=== PATIENT | female | born 1970 | race Two or more races ===

== ENCOUNTER 2020-01-22 16:29 | Outpatient (REF) | payer OTHER, SELFPAY | END 2020-01-22 16:30 | disposition home or self-care (01) | LOC: HO.LAB 16:29 | PROVIDERS: Visit Provider Internal Medicine | DX: Z20.828 Contact with and (suspected) exposure to other viral communicable diseases (principal) | CPT/HCPCS: C9803; U0003 ==

== ENCOUNTER 2020-02-11 14:00 | Outpatient (RCR) | payer OTHER, SELFPAY ==
--- NOTE | 2019-12-15 12:53 | MHC.PT.EP ---
[facility] [place] Office [place] Office [place] Office [address] [phone] F: [phone] F: [phone] F: [phone] F: [phone] Physical Therapy Plan of Care Date of Evaluation: 12/15/19 Date of Surgery: NA Diagnosis: L hip and shoulder pain Assessment: 49 y/o LHD female referred to PT with L shoulder pain and L hip pain. She has had on and off pain her whole life but recently has gotten worse over the past few years and she thinks this has to do with her Cerebral Palsy. She is I with ADL's but occasionally will need help with dressing and grooming. SHe has pain with sleeping on her L side, lifting B UE, reaching, prolonged sitting, dressing, and computer work. Of note, PMH significant for CP and R biceps tear. Examination shows decreased B shoulder AROM, decreased L shoulder ER/FLEX strength, decreased B LE A/PROM, B LE tone and patterning into L hip IR/ADD/flex, and impaired gait pattern. Recommend PT 2x/week for 5 weeks to address impairments, implement HEP, and optimize functional mobility. POC to include STM, stretching, PNF, ROM, strengthening and modification of home stretches to take strain of B UE (she uses a stretch strap often). Frequency and Duration: The patient will be seen 2x/week for 5 weeks Short Term Goals: 2weeks: 1. Initiate HEP 2. Demonstrate neutral sitting posture with lumbar roll and cues < 50% 3. Demonstrate B shoulder flexion to 140 Detention Goals: 4 weeks: 1. I with HEP and self management of sx 2. Pt will be I with grooming 100% of the time with pain < 3/10 3. Pt will be able to sit at computer with neutral posture and cues < 75% Treatment Plan: Modalities to reduce pain, spasms and effusion. Manual therapy to restore motion and function. Therapeutic exercise to improve strength and flexibility. Neuromuscular re-education for posture and balance. Therapeutic activities to return to functional activities of daily living. Please sign and return to therapist. Thank you for your referral.
--- NOTE | 2020-02-18 11:42 | MHC.PT.DC ---
[facility] [place] Office [place] Office [place] Office [address] Pito Caballero [address] [phone] F: [phone] F: [phone] F: [phone] F: [phone] Physical Therapy Discharge Report Diagnosis: L hip and shoulder pain Date of Surgery: NA Date of Evaluation: 12/15/19 Date of Discharge: 02/18/20 Treatments to Date: 5 Cancellations to Date: 12 No Shows to Date: 0 Discharge Status: Improved Function Independent with HEP Patient Elected to Stop Discharge Summary: FROM ASSESMENT AT LAST VISIT (02/11/20)..HAS MET MOST PT GOALS, HAS HEP. HAS ONE MORE APPT SCHEDULED (TO REV/PERF EXS AND CALL TO CX/DC OR COME IN FOR ONE FINAL REVIEW). Pt CALLED TO CX LAST SCHEDULED APPT (02/18/20) REPORTS WILL RETURN TO PT IN FUTURE IF NEEDED [ End ] Electronically signed by: ALEKSANDER ROSE PT Please sign and return to therapist. Thank you for your referral.
== END 2020-03-11 09:53 | disposition other institution (70) ==
LOC: HO.PTWFD 14:00
PROVIDERS: PCP Internal Medicine; Visit Provider Internal Medicine
DX: M25.552 Pain in left hip (principal); M25.512 Pain in left shoulder
CPT/HCPCS: 97110; 97140; 97162; 97535

== ENCOUNTER → 2020-06-02 08:23 | Outpatient (BNVA) | payer OTHER, SELFPAY | PROVIDERS: PCP Internal Medicine; Visit Provider Anesthesiology | DX: M53.3 Sacrococcygeal disorders, not elsewhere classified (principal); M46.1 Sacroiliitis, not elsewhere classified; M16.12 Unilateral primary osteoarthritis, left hip | CPT/HCPCS: 99202 ==

== ENCOUNTER 2020-06-08 09:43 | Outpatient (REF) | payer OTHER, SELFPAY ==
--- NOTE | ~2020-06-08 | XR_ITS ---
EXAMINATION: XR HIP, LEFT CLINICAL INFORMATION: Primary osteoarthritis COMPARISON: None TECHNIQUE: Two views of the left hip. FINDINGS: Visualized portion of the proximal left femur demonstrate no fracture. Femoral head is well-seated within the acetabulum. Left femoral acetabular joint space is well-maintained. Calcifications within the pelvis are likely vascular in nature. Sacroiliac joints are symmetric. XR/XR hip LT min 2V IMPRESSION: Unremarkable radiographs of the left hip.
[2020-06-08 10:33] LABS: MANUAL DIFF FLAG NO
[2020-06-08 10:45] LABS: Basophils Percent Auto 0.4 % (0-2); Eosinophils Absolute Auto 0.2 X10*3/uL (0.0-0.4); Eosinophils Percent Auto 2.8 % (0-4); Hematocrit 38.8 % (37-47); Hemoglobin 12.4 g/dl (12.0-16.0); Imm Gran Abs Auto 0.02 X10*3/uL (0.00-0.03); Imm Gran Pct Auto 0.4 % (0.0-0.4); Lymphocytes Absolute Auto 1.9 X10*3/uL (1.2-4.9); Lymphocytes Percent Auto 32.7 % (20-40); Mean Corpuscular Hemoglobin 29.7 pg (27.0-33.0); Mean Corpuscular Volume 92.8 fL (80-98); Mean Platelet Volume 9.4 fL (9.4-12.3); Monocytes Absolute Auto 0.4 X10*3/uL (0.1-1.2); Monocytes Percent Auto 6.3 % (2-11); Neutrophils Absolute Auto 3.3 X10*3/uL (2.0-8.3); Neutrophils Percent Auto 57.4 % (45-73); Platelet Count 273 X10*3/uL (160-400); Red Blood Count 4.18 X10*6/uL (4.20-5.50); Red Cell Distribution Width 12.1 % (11.0-16.0); White Blood Count 5.7 X10*3/uL (4.8-10.8)
[2020-06-08 11:07] LABS: Alanine Aminotransferase 11 U/L (0-31); Albumin Level 4.3 g/dL (3.5-5.0); Alkaline Phosphatase 67 U/L (39-117); Anion Gap 14 (12-20); Aspartate Amino Transferase 17 U/L (5-31); Bilirubin Total 0.6 mg/dL (0.0-1.0); Blood Urea Nitrogen 13 mg/dL (9-16); Calcium 9.7 mg/dL (8.4-10.2); Carbon Dioxide 25 mmol/L (22-29); Chloride 103 mmol/L (96-108); Cholesterol 209 mg/dL; Estimated Glomerular Filt Rate > 60; Glucose Fasting 93 mg/dL (60-99); HDL Cholesterol 39 mg/dL; LDL Cholesterol Calculated 142 mg/dl; Potassium 3.9 mmol/L (3.3-5.1); Sodium 138 mmol/L (135-145); Total Protein 7.8 g/dL (6.5-8.0); Triglycerides 140 mg/dL
[2020-06-15 11:12] LABS: Vitamin D 25-OH, D2 <4 ng/mL; Vitamin D 25-OH, D3 33 ng/mL; Vitamin D 25-OH, Total 33 ng/mL (30-100)
== END 2020-06-08 09:44 | disposition home or self-care (01) ==
LOC: HO.LAB 09:43
PROVIDERS: Absent Provider Anesthesiology; PCP Internal Medicine; Visit Provider Internal Medicine
DX: E55.9 Vitamin D deficiency, unspecified (principal); R42 Dizziness and giddiness; E78.00 Pure hypercholesterolemia, unspecified; E78.5 Hyperlipidemia, unspecified; M16.12 Unilateral primary osteoarthritis, left hip
CPT/HCPCS: 36415; 73502; 80053; 80061; 82306; 85025

== ENCOUNTER → 2020-06-23 11:32 | Outpatient (BNVA) | payer OTHER, SELFPAY | PROVIDERS: PCP Internal Medicine; Visit Provider Anesthesiology | DX: M46.1 Sacroiliitis, not elsewhere classified (principal); M53.3 Sacrococcygeal disorders, not elsewhere classified; M16.12 Unilateral primary osteoarthritis, left hip | CPT/HCPCS: 99212 ==